=== PATIENT | female | born 1970 | race African-American/Black ===

== ENCOUNTER → 2016-10-26 | Outpatient (CLI) | payer MEDICARE, MEDICAID ==
[~2016-10-26] MED LIST: ALBU8.5H IH; BACL10TA PO; BENZ-26 PO; BUDE10.2 IH; CARI350 PO; CYAN1TAB44 PO; IPRA3S NASAL; OMEG1CAP55 PO; OXYC10 PO; PANT40TA25 PO; PROMVCC5L PO; VITAD1000 PO
== END | disposition home or self-care (01) ==
LOC: RESP 09:39
PROVIDERS: ATTEND Internal Medicine Critical Care Medicine
DX: G47.33 Obstructive sleep apnea (adult) (pediatric) (principal)
CPT/HCPCS: 94010; 94726; 94727; 94729

== ENCOUNTER → 2017-02-05 | Outpatient (CLI) | payer MEDICARE, MEDICAID ==
[~2017-02-05] MED LIST changes: -BACL10TA PO; -BENZ-26 PO
== END | disposition home or self-care (01) ==
LOC: RADPV 11:36
PROVIDERS: ATTEND Internal Medicine Critical Care Medicine
DX: J44.9 Chronic obstructive pulmonary disease, unspecified (principal); M41.84 Other forms of scoliosis, thoracic region
CPT/HCPCS: 71020